=== PATIENT | female | born 1980 | race Caucasian/White ===

== ENCOUNTER 2025-02-22 03:35 | Emergency (ER) | payer BC, SELFPAY ==
[2025-02-22 03:43] VITALS: BP 191/105; PULSE 109; RESP 16; TEMP 36.8; O2SAT 98; BMI 47.6
--- NOTE | 2025-02-22 03:52 | [facility].EDGENADL ---
Discharge Plan Disposition Patient Disposition: Home, Self-Care Referrals Follow up/Referrals: Damon Palencia MD [Primary Care Provider, Medical] - See instructions Sona Benavidez APRN [Nurse Practitioner, Ear, Nose, Throat] - See instructions Activity Restrictions/Add. Instructions Additional Instructions/Restrictions: Please use eardrops as prescribed for prophylaxis of infection Clinical Impressions Clinical Impression: Foreign body of ear, right Qualifiers: Encounter type: initial encounter Qualified Code(s): T16.1XXA - Foreign body in right ear, initial encounter Print Language Print Language: Yoruba Discharge ED Provider: Reid Gonzalez General Adult HPI General Chief complaint: Ear Stated complaint: moth in ear Time Seen by Provider: 02/22/25 03:35 Mode of Arrival: Family Vehicle Source of Information: Patient Description of Symptoms (Recalled from ER Triage Doc. by RN): FO in Ear Pt presents to the ED with c/o a bug in her R ear. Pt reports that approx 5 hrs ago she felt a moth fly in her R ear. Pt reports that she used a Qtip and tweexers to try to remove the bug. History of Present Illness HPI narrative: Pt presents to the ED with c/o a bug in her R ear. Pt reports that approx 5 hrs ago she felt a moth fly in her R ear. Pt reports that she used a Qtip and tweexers to try to remove the bug. She did not have success. She reports a little bit of bleeding from the ear as a result. Does not feel like it is moving around anymore. Related Data Allergies Allergy/AdvReac Type Severity Reaction Status Date / Time INGREDIENT: NO KNOWN - NO Allergy Unknown Unknown Uncoded 02/22/25 03:50 KNOWN DRUG ALLERGY allergy reaction MINT Allergy Unknown I-HIVES Uncoded 07/15/17 15:01 MORPHINE Allergy Unknown NA-HALLUCIN Uncoded 07/15/17 15:01 ATIONS [facility] Disclaimer: The information contained in this section may have been updated after the patient was seen, as this information can be updated by other users. Social History Smoking Status: Current every day smoker alcohol intake: never current occupational status: employed Travel in the last 8 weeks?: None ROS Obtained: Yes All systems reviewed & no additional complaints except as documented Physical Exam General General appearance: alert and in no apparent distress Head Head exam: atraumatic and normocephalic Eye Eye exam: Present normal appearance, PERRL and EOMI ENT ENT exam: Present normal oropharynx, normal external ear exam and other (Bug noted in the right external auditory canal, there is a small laceration/irritation to the canal noted prior to intervention) Neck Neck exam: Present normal inspection and full ROM Chest Chest inspection: Present normal inspection and symmetric chest wall rise; Absent tenderness Respiratory Respiratory exam: Present normal lung sounds bilaterally; Absent respiratory distress Cardiovascular Cardiovascular exam: Present regular rate and normal rhythm Abdominal Exam Abdominal exam: Present soft; Absent distention, tenderness or guarding Extremities Exam Extremities exam: Present normal inspection; Absent edema or joint swelling Back Exam Back exam: Present normal inspection; Absent tenderness Neurological Exam Neurological exam: Present alert and oriented X3; Absent motor sensory deficit Psychiatric Psychiatric exam: Present normal affect and normal mood Skin Skin exam: Present warm, dry and normal color Lymphatic Lymphatic Findings: no adenopathy Medical Decision Making Medical Records Medical records reviewed: Yes I reviewed the patient's medical records. Screening: Per USPSTF and CDC recommendations, given the prevalence of disease in our region, it is our hospital?s policy to screen for HIV and viral Hepatitis for all patients aged 18 and over and those with ongoing risk factors. David Inquiry Pt receiving controlled substance: No David was queried for this patient: No Vital Signs: 02/22/25 03:43 Temperature 98.2 F Temperature Source Oral Pulse Rate [Left] 109 H Respiratory Rate 16 Blood Pressure [Right Arm] 191/105 H Blood Pressure Mean [Right Arm] 133 Blood Pressure Source [Right Arm] Automatic Cuff Blood Pressure Position [Right Arm] Sitting 02 Sat by Pulse Oximetry 98 Oxygen Delivery Method Room Air Lab Data Lab results reviewed: Yes I reviewed the patient's lab results. Orders (Tests/Meds): ED MEDICATIONS Discontinued Medications Generic Name Dose Route Start Last Admin Trade Name Freq PRN Reason Stop Dose Admin Neomycin/Polymyxin/Hydrocortisone 10 ml 02/22/25 04:00 Lsfgexri-Rvhezaxnd-Rm Otic Susp 10ml OT 02/22/25 04:01 ONCE ONE Medical Decision Narrative: 44-year-old female presents with a bug in her right ear. History was obtained via interactive discussion with patient. On arrival, patient is [afebrile, hemodynamically stable, satting appropriately, alert, oriented x4, GCS 15], moving all extremities spontaneously. Full physical exam performed and significant for apparent bug in the right ear, irritation/laceration to the ear canal noted prior to intervention from patient's attempt to get the bug out Differential includes but is not limited to laceration, TM perforation, bug in ear. Patient was given lidocaine into the external auditory canal to kill the bug and anesthetize the area. The bug was removed by me at bedside. Patient was discharged with neomycin polymyxin otic drops for prophylaxis of otitis externa. Patient discharged in stable condition with return precautions. Procedures Risk/Benefits of Procedure(s) Were Explained: Yes Foreign Body Removal Time Out Performed: Yes Site: ear Description of foreign body: insect Technique: removal with forceps Confirmed by:: direct visualization Complications: none Critical Care Critical Care Time Critical Care Time: No
[2025-02-22] MEDS: NEOMYCIN-POLYMYXIN-HC OTIC SUSP 10ML 10 ML OT (04:29)
[2025-02-22 04:36] VITALS: BP 162/95; PULSE 81; RESP 14; TEMP 36.8; O2SAT 98
== END 2025-02-22 04:37 | disposition home or self-care (01) ==
PROVIDERS: Emergency Provider Emergency Medicine; PCP Family Medicine
DX: T16.1XXA Foreign body in right ear, initial encounter (principal)
CPT/HCPCS: 69200; 99283